=== PATIENT | female | born 1990 | race Caucasian/White ===

== ENCOUNTER → 2016-12-07 | Outpatient (CLI) | payer OTHER ==
[~2016-12-07] MED LIST: FEOSOL325 MG PO; MOTRIN800 MG PO; PERCOCET 5-3251 EACH PO; PRENATAL 1+1)(P1 TAB PO
== END | disposition disaster alternative care site (69) ==
LOC: GRAD 13:03
DX: M54.6 Pain in thoracic spine (principal)